=== PATIENT | female | born 2005 | race Two or more races ===

== ENCOUNTER 2025-10-02 16:57 | Emergency (ER) | payer MEDICAID, OTHER ==
[~2025-10-02] VITALS: Ht 167.6 cm; Wt 75.0 kg
[2025-10-02 17:21] VITALS: PULSE 98; RESP 16; O2SAT 100
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
[2025-10-02] MEDS: SODIUM CHLORIDE 0.9% 1,000 ML IV ONE (17:28)
[2025-10-02] MEDS: METOCLOPRAMIDE HCL 5MG/ml INJ 2ml VIAL IV ONE (17:38)
[2025-10-02] MEDS: ACETAMINOPHEN 500 MG TAB or CAP PO ONE (17:38)
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
[2025-10-02 18:03] LABS: Hematocrit 36.4 % (36.0-46.0); Hemoglobin 11.9 g/dL (12.2-16.2); Mean Corpuscular Hemoglobin 28.0 pg (28.0-32.0); Mean Corpuscular Volume 85.2 fL (80.0-100.0); Nucleated Red Blood Cells % 0.0 %; Potassium 4.1 mmol/L (3.5-5.1)
[2025-10-02 18:04] LABS: Anion Gap 9 (5-15); Carbon Dioxide 26 mmol/L (20-31)
[2025-10-02 18:05] LABS: Calcium 8.7 mg/dL (8.7-10.4)
[2025-10-02 18:09] LABS: Glucose 84 mg/dL (74-106)
[2025-10-02 18:10] LABS: BUN/Creatinine Ratio 12.8 (10.0-20.0); Blood Urea Nitrogen 12 mg/dL (9-23)
[2025-10-02] MEDS: KETOROLAC TROMETH 30 MG/ML 1ML VIAL IV ONE (18:45)
[2025-10-02 18:54] LABS: Chloride 111 mmol/L (98-107); Sodium 146 mmol/L (136-145)
[2025-10-02 19:39] LABS: Urine Protein, UAD Negative (Negative)
[2025-10-02 20:00] VITALS: BP 97/55; PULSE 72; RESP 21; TEMP 98.5; O2SAT 98
== END 2025-10-02 20:15 | disposition home or self-care (01) ==
LOC: ER 16:57
DX: S09.8XXA Other specified injuries of head, initial encounter (principal); G43.909 Migraine, unspecified, not intractable, without status migrainosus; F07.81 Postconcussional syndrome; W22.8XXA Striking against or struck by other objects, initial encounter; Y93.89 Activity, other specified; Y92.89 Other specified places as the place of occurrence of the external cause; Y99.8 Other external cause status
CPT/HCPCS: 36415; 70450; 80048; 81001; 85025; 96361; 96374; 96375; 99285; J1885; J2765; J7030